=== PATIENT | male | born 1990 | race African-American/Black ===

== ENCOUNTER 2016-05-12 17:30 | Emergency (ER) | payer OTHER ==
--- NOTE | 2016-05-12 17:34 | ER Document Report ---
ED Medical Screen (RME) - General Stated Complaint: STD EXPOSURE Notes: Patient is a 25-year-old male presents emergency department for STD check. Patient admits to discharge from his penis as well as pyuria. This started last night. Denies any testicular pain. Had unprotected sexual intercourse 2 weeks ago. I have greeted and performed a rapid initial assessment of this patient. A comprehensive ED assessment and evaluation of the patient, analysis of test results and completion of the medical decision making process will be conducted by additional ED providers. TRAVEL OUTSIDE OF THE [place] IN LAST 30 DAYS: No - Related Data Allergies/Adverse Reactions: No Known Allergies Allergy (Verified 05/12/16 17:32)
[2016-05-12 18:10] LABS: APPEARANCE,URINE CLOUDY; BILIRUBIN,URINE NEGATIVE (NEGATIVE); GLUCOSE, URINE NEGATIVE (NEGATIVE); KETONES,URINE NEGATIVE (NEGATIVE); LEUKOCYTE ESTERASE,URINE LARGE (NEGATIVE); NITRITE,URINE NEGATIVE (NEGATIVE); PROTEIN,URINE 30 mg/dL (NEGATIVE); URINE SPECIFIC GRAVITY 1.027; UROBILINOGEN,URINE NEGATIVE mg/dL (<2.0)
--- NOTE | 2016-05-12 18:21 | ER Document Report ---
ED GI/ - General Chief Complaint: STD Exposure Stated Complaint: STD EXPOSURE Mode of Arrival: Ambulatory Information source: Patient TRAVEL OUTSIDE OF THE [place] IN LAST 30 DAYS: No - HPI Patient complains to provider of: Other - URETHRAL D/C, DYSURIA Onset: Yesterday Timing/Duration: Gradual Quality of pain: Burning Severity at maximum: Moderate Context: Other - CONTACT W/ SUSPECTED STD CARRIER Sexual history: STD exposure - SAYS HE'LL HAVE NO FURTHER CONTACT W/ THIS PERSON Associated symptoms: Dysuria, Penile discharge Exacerbated by: Denies Relieved by: Denies Similar symptoms previously: Yes - SIMILAR, BUT LESS SEVERE Recently seen / treated by doctor: No - Related Data Allergies/Adverse Reactions: No Known Allergies Allergy (Verified 05/12/16 19:41) Home Medications: Current Home Medications No Home Medications 05/12/16 [History] Past Medical History - General Information source: Patient - Social History Smoking Status: Current Every Day Smoker Chew tobacco use (# tins/day): No Frequency of alcohol use: None Drug Abuse: None Lives with: Alone Family History: Reviewed & Not Pertinent Patient has suicidal ideation: No Patient has homicidal ideation: No - Medical History Medical History: Negative Renal/ Medical History: Denies: Hx Peritoneal Dialysis Psychiatric Medical History: Reports: None Surgical Hx: Negative Review of Systems - Review of Systems Constitutional: No symptoms reported EENT: No symptoms reported Cardiovascular: No symptoms reported Respiratory: No symptoms reported Gastrointestinal: No symptoms reported Genitourinary: See HPI Male Genitourinary: See HPI Musculoskeletal: No symptoms reported Skin: No symptoms reported Neurological/Psychological: No symptoms reported Physical Exam - Vital signs Interpretation: Hypertensive. No: Tachycardic, Tachypneic, Febrile - General General appearance: Appears well, Alert - HEENT Head: Normocephalic Eyes: Normal Conjunctiva: Normal Ears: Normal Nasal: Normal Mouth/Lips: Normal Mucous membranes: Normal - Respiratory Respiratory status: No respiratory distress - Genitourinary Inspection: Penile discharge - Neurological Neuro grossly intact: Yes - Psychological Associated symptoms: Normal affect, Normal mood - Skin Skin Temperature: Warm Skin Moisture: Dry Skin Color: Normal Skin Turgor: Elastic Course - Laboratory Laboratory results interpreted by me: 05/12/16 05/12/16 17:42 17:42 Urine Protein 30 H Urine Blood SMALL H Ur Leukocyte Esterase LARGE H N.gonorrhoeae DNA (PCR) DETECTED H Discharge - Discharge Clinical Impression: Gonococcal urethritis in male Condition: Stable Disposition: HOME, SELF-CARE Instructions: Gonorrhea ([facility]), Rocephin ([facility]) Additional Instructions: AVOID UNPROTECTED SEXUAL CONTACT FOR NEXT 3 DAYS. TELL RECENT SEXUAL CONTACTS THAT THEY NEED EVALUATION AND TREATMENT. YOUR SYPHILIS TEST WILL NOT BE DONE UNTIL TOMORROW A.M. IF IT IS POSITIVE, WE WILL CALL YOU AND ADVISE YOU WHAT TREATMENT IS NECESSARY AND WHERE TO GO TO GET IT.
[2016-05-12 19:34] LABS: CHLAM PCR NOT DETECTED (NOT DETECT)
[2016-05-12] MEDS ORDERED: CEFTRIAXONE INJ 250 MG VIAL IM ONE (19:59)
[2016-05-12] MEDS ORDERED: LIDOCAINE 1% INJ-PF (10 MG/ML) 30 ML SDV INFIL ONE (19:59)
[2016-05-12 20:18] VITALS: BP 112/77
[2016-05-17 14:32] LABS: RPR SEND OUT REACTIVE (NONREACTIVE)
== END 2016-05-12 20:25 | disposition home or self-care (01) ==
LOC: ER 17:30
DX: A54.01 Gonococcal cystitis and urethritis, unspecified (principal); R30.0 Dysuria; F17.200 Nicotine dependence, unspecified, uncomplicated
CPT/HCPCS: 99283; 96372; 36415; 86592; 81001; 87491; 87591; J3490; J0696

== ENCOUNTER 2016-06-08 18:37 | Emergency (ER) | payer OTHER ==
--- NOTE | 2016-06-08 19:16 | ER Document Report ---
ED Medical Screen (RME) - General Chief Complaint: Abdominal Pain Stated Complaint: ABDOMINAL PAIN Notes: Patient says he experienced diarrhea about a week ago and then it went away and now has come back today along with some abdominal cramping. Points to the lower abdomen as the location of the cramping and seems to point a slightly to the right of center, near the right lower quadrant. At this moment, patient says it's not painful. Does not had any nausea or vomiting. Diarrhea has been without blood. Does not have chronic diarrhea or any other gastrointestinal diseases. Has not had any fever. No history of any abdominal surgeries. Does smoke and does drink alcohol. On no regular prescription medications. TRAVEL OUTSIDE OF THE [place] IN LAST 30 DAYS: No - Related Data Allergies/Adverse Reactions: No Known Allergies Allergy (Verified 05/12/16 19:41) Past Medical History Renal/ Medical History: Denies: Hx Peritoneal Dialysis Physical Exam - Vital signs Vitals: Temp Pulse Resp BP Pulse Ox 98 F 72 16 124/85 98 06/08/16 18:51 06/08/16 18:51 06/08/16 18:51 06/08/16 18:51 06/08/16 18:51 Course - Vital Signs Vital signs: Temp Pulse Resp BP Pulse Ox 98 F 72 16 124/85 98 06/08/16 18:51 06/08/16 18:51 06/08/16 18:51 06/08/16 18:51 06/08/16 18:51
[2016-06-08 19:38] LABS: ABSOLUTE EOSINOPHILS # (AUTO) 0.2 10^3/uL (0.0-0.6); ABSOLUTE LYMPHOCYTES (AUTO) 2.7 10^3/uL (0.5-4.7); ABSOLUTE MONOCYTES (AUTO) 0.8 10^3/uL (0.1-1.4); BASOPHILS % (AUTO) 0.6 % (0-2); EOSINOPHILS % (AUTO) 5.1 % (0-6); HEMOGLOBIN 12.9 g/dL (13.5-17.0); HGB HCT DIFFERENCE 0.7; LYMPHOCYTES % (AUTO) 56.2 % (13-45); MEAN CORPUSCULAR HEMOGLOBIN 27.6 pg (27.0-33.4); MEAN CORPUSCULAR VOLUME 81 fl (80-97); RED BLOOD COUNT 4.68 10^6/uL (4.35-5.55); RED CELL DISTRIBUTION WIDTH 14.7 % (11.5-14.0); SEGMENTED NEUTROPHILS % (AUTO) 21.1 % (42-78); WHITE BLOOD COUNT 4.7 10^3/uL (4.0-10.5)
[2016-06-08 19:58] LABS: ALANINE AMINOTRANSFERASE 24 U/L (21-72); ALKALINE PHOSPHATASE 60 U/L (38-126); ANION GAP 11 (5-19); ASPARTATE AMINO TRANSFERASE 26 U/L (17-59); BILIRUBIN,DIRECT 0.1 mg/dL (0.0-0.4); BILIRUBIN,TOTAL 0.4 mg/dL (0.2-1.3); BLOOD UREA NITROGEN 8 mg/dL (7-20); CALCIUM 9.2 mg/dL (8.4-10.2); CARBON DIOXIDE 31 mmol/L (22-30); CHLORIDE 104 mmol/L (98-107); CREATININE RESULT 0.82 mg/dL (0.52-1.25); GLUCOSE 87 mg/dL (75-110); LIPASE 66.3 U/L (23-300); POTASSIUM 4.2 mmol/L (3.6-5.0); TOTAL PROTEIN 7.7 g/dL (6.3-8.2)
[2016-06-08 20:02] LABS: APPEARANCE,URINE CLEAR; BILIRUBIN,URINE NEGATIVE (NEGATIVE); GLUCOSE, URINE NEGATIVE (NEGATIVE); KETONES,URINE NEGATIVE (NEGATIVE); LEUKOCYTE ESTERASE,URINE NEGATIVE (NEGATIVE); NITRITE,URINE NEGATIVE (NEGATIVE); PROTEIN,URINE NEGATIVE (NEGATIVE); URINE SPECIFIC GRAVITY 1.029; UROBILINOGEN,URINE NEGATIVE mg/dL (<2.0)
--- NOTE | 2016-06-08 21:23 | ER Document Report ---
ED GI/ - General Chief Complaint: Abdominal Pain Stated Complaint: ABDOMINAL PAIN Mode of Arrival: Ambulatory Information source: Patient TRAVEL OUTSIDE OF THE [place] IN LAST 30 DAYS: No - HPI Patient complains to provider of: Diarrhea Notes: 06/08/16 21:18 Patient arrives with complaints of diarrhea and abdominal cramping. Patient states he has a history of IBS and started having some cramping and diarrhea yesterday. He ended up not going to work today and states that his work is required him to have a work note so he came to the emergency department order to obtain a work note. He denies any abdominal pain. Currently. He states that he had nausea and vomited once just today, has had no vomiting since. No dysuria hematuria. No fevers. He denies any prior abdominal surgeries. No chest pain or shortness of breath. He has any penile discharge. No rash. Symptoms better or worse. He has no other complaints at this moment. - Related Data Allergies/Adverse Reactions: No Known Allergies Allergy (Verified 05/12/16 19:41) Past Medical History - Social History Smoking Status: Unknown if Ever Smoked Family History: Reviewed & Not Pertinent Renal/ Medical History: Denies: Hx Peritoneal Dialysis Review of Systems - Review of Systems -: Yes All other systems reviewed and negative Physical Exam - Vital signs Vitals: Temp Pulse Resp BP Pulse Ox 98 F 72 16 124/85 98 06/08/16 18:51 06/08/16 18:51 06/08/16 18:51 06/08/16 18:51 06/08/16 18:51 - Notes Notes: GENERAL: alert, cooperative, nontoxic, no distress. HEAD: normocephalic, atraumatic EYES: conjunctiva pink without discharge, no external redness or swelling. EARS: no external swelling, no external redness NOSE: atraumatic, no external swelling MOUTH/THROAT: mucous membranes moist and pink, posterior pharynx without erythema, swelling, exudate. No trismus or drooling. NECK: soft, supple, full range of motion, no meningismus. CHEST: no distress, lungs clear and equal throughout. No wheezing, rales, rhonchi. CARDIAC: regular rate and rhythm, no murmur, normal capillary refill, normal pulses. No peripheral edema noted. ABDOMEN: Soft, nontender, no rebound tenderness or guarding. No mass. BACK: full range of motion, no CVA tenderness. EXTREMITIES: full range of motion of all extremities. No redness, no swelling. NEURO: alert and oriented 3, no focal deficits, full range of motion of all extremities. PYSCH: appropriate mood, affect. Patient is cooperative. SKIN: pink, warm, dry, no rash. Course - Re-evaluation Re-evalutation: 06/08/16 21:22 Patient is nontoxic with stable vitals. The patient has a history of IBS. States that he was having some abdominal cramping and diarrhea which has improved, he missed work and states he needs a work note. He has a benign exam at this time with no abdominal tenderness on exam. His labs are unremarkable. The patient will be discharged home on Bentyl. Follow up for increased pain, fever, persistent vomiting, blood in the stool, or any further concerns. The patient is noted to have elevated blood pressure during today's emergency department visit. The patient was informed of this finding. The patient was instructed that this may be related to pre-hypertension and requires further evaluation with a primary care provider. The patient has no hypertensive symptoms at this time. The patient's emergency department workup and current diagnosis were explained to the patient and or family. Follow-up instructions were provided. Medications if prescribed were discussed. Instructions for when to return to the emergency department including specific worrisome symptoms were discussed with the patient and/or family. - Vital Signs Vital signs: Temp Pulse Resp BP Pulse Ox 98 F 72 16 124/85 98 06/08/16 18:51 06/08/16 18:51 06/08/16 18:51 06/08/16 18:51 06/08/16 18:51 - Laboratory Result Diagrams: 06/08/16 19:28 06/08/16 19:28 Laboratory results interpreted by me: 06/08/16 06/08/16 19:28 19:28 Hgb 12.9 L RDW 14.7 H Seg Neutrophils % 21.1 L Lymphocytes % 56.2 H Monocytes % 17.0 H Absolute Neutrophils 1.0 L Sodium 146.0 H Carbon Dioxide 31 H Discharge - Discharge Clinical Impression: Diarrhea Qualifiers: Diarrhea type: unspecified type Qualified Code(s): R19.7 - Diarrhea, unspecified Condition: Stable Instructions: Diarrhea, Nonspecific ([facility]) Additional Instructions: Take medications as prescribed. Drink plenty of fluids. Follow-up with your doctor for diarrhea lasting longer than 2 weeks, blood in her stool, severe abdominal pain, persistent vomiting, fever, or any further concerns. Your blood pressure was elevated during today's visit. Have this rechecked with your doctor. Prescriptions: Dicyclomine HCl [Bentyl 10 mg Capsule] 1 cap PO TID PRN #15 cap PRN Reason: Forms: Elevated Blood Pressure, Return to Work
[2016-06-08 21:51] VITALS: BP 127/81
== END 2016-06-08 21:42 | disposition home or self-care (01) ==
LOC: ER 18:37
DX: R19.7 Diarrhea, unspecified (principal); R10.9 Unspecified abdominal pain
CPT/HCPCS: 36415; 80053; 81001; 83690; 85025; 99284